=== PATIENT | female | born 1970 | race Caucasian/White ===

== ENCOUNTER 2024-02-01 10:42 | Outpatient (RCR) | payer BC, SELFPAY ==
[2024-02-01 11:20] VITALS: BP 172/96
[2024-02-01] MEDS: RECLAST 100 IV (11:30)
[2024-02-01 12:15] VITALS: BP 138/80
== END 2024-02-01 15:30 | disposition home or self-care (01) ==
LOC: OID 10:42
PROVIDERS: ATTENDING PHYSICIAN Internal Medicine Endocrinology, Diabetes & Metabolism; REFERRING PHYSICIAN Family Medicine
DX: M81.0 Age-related osteoporosis without current pathological fracture (principal)
CPT/HCPCS: 96365; J3489

== ENCOUNTER 2025-02-10 13:03 | Outpatient (RCR) | payer OTHER, SELFPAY ==
[2025-02-10] MEDS: RECLAST 100 IV (13:30)
[2025-02-10 13:37] VITALS: BP 143/71
[2025-02-10 14:45] VITALS: BP 126/63
== END 2025-02-16 23:59 | disposition home or self-care (01) ==
LOC: OID 13:03
PROVIDERS: ATTENDING PHYSICIAN Internal Medicine Endocrinology, Diabetes & Metabolism; FAMILY PHYSICIAN Internal Medicine
DX: M81.0 Age-related osteoporosis without current pathological fracture (principal)
CPT/HCPCS: 96365; J3489